=== PATIENT | female | born 2000 | race Caucasian/White ===

== ENCOUNTER 2022-04-01 02:35 | Emergency (ER) | payer BC ==
[~2022-04-01] VITALS: Ht 167.6 cm; Wt 63.6 kg
[2022-04-01 02:35] VITALS: TEMP 97.6
[2022-04-01 03:16] VITALS: BP 94/84; PULSE 80
== END 2022-04-01 03:21 | disposition home or self-care (01) ==
LOC: COL.ER 02:35
DX: F10.229 Alcohol dependence with intoxication, unspecified (principal); Z28.310 Unvaccinated for COVID-19